=== PATIENT | male | born 1965 | race Hispanic/Latino ===

== ENCOUNTER 2018-04-11 16:36 | Emergency (ER) | payer OTHER ==
[2018-04-11] MEDS ORDERED: ASPIRIN 325 MG TABLET ONE (16:42)
[2018-04-11 17:00] LABS: BASOPHILS % (AUTO) 2.1 % (0.0-5.0); EOSINOPHILS % (AUTO) 2.6 % (0.0-8.0); HEMATOCRIT 38.9 % (42-54); MEAN CORPUSCULAR HEMOGLOBIN 28.1 pg (27.0-33.0); MEAN CORPUSCULAR HGB CONC 34.7 g/dL (32.0-36.0); MEAN CORPUSCULAR VOLUME 80.9 fL (79-99); NEUTROPHILS % (AUTO) 77.3 % (40.0-77.0); NUCLEATED RED BLOOD CELLS 0.1 % (0.0-0.19); PLATELET COUNT (AUTO) 249 K/uL (130-400); RED BLOOD CELL COUNT(AUTO) 4.82 MIL/uL (4.50-6.20); RED CELL DISTRIBUTION WIDTH 14.9 % (11.0-15.5); WHITE BLOOD COUNT (AUTO) 6.4 K/uL (4.8-10.8)
[2018-04-11 17:12] LABS: PARTIAL THROMBOPLASTIN TIME 25.2 SEC (26.3-35.5); PROTHROMBIN TIME 10.5 SEC (9.6-11.6)
[2018-04-11 17:15] LABS: CREATININE 0.8 mg/dL (0.5-1.5); POTASSIUM 4.1 mmol/L (3.5-5.1)
[2018-04-11 17:48] LABS: BILIRUBIN,TOTAL 0.4 mg/dL (0.2-1.0); CREATINE KINASE MB 1.6 ng/mL (0.5-3.6); TOTAL PROTEIN, SERUM 7.1 g/dL (6.0-8.3)
== END 2018-04-11 20:32 | disposition home or self-care (01) ==
LOC: EDH 16:36
DX: R07.9 Chest pain, unspecified (principal); R06.02 Shortness of breath; I10 Essential (primary) hypertension; Z87.891 Personal history of nicotine dependence; Z88.0 Allergy status to penicillin
CPT/HCPCS: 36415; 71045; 80053; 82550; 82553; 83874; 84484; 85025; 85610; 85730; 93005; 94761

== ENCOUNTER 2019-09-25 19:27 | Inpatient (IN) | payer SELFPAY ==
[~2019-09-25] VITALS: Ht 152.4 cm; Wt 149.7 kg
[2019-09-25] MEDS ORDERED: ACETAMINOPHEN EXTRA STRENGTH 500 MG TABLET ONE (19:58)
[2019-09-25] MEDS ORDERED: SODIUM CHLORIDE 0.9% 1000ML 1,000 ML IV ONE ×2 (19:58→22:43)
[2019-09-25 20:01] LABS: BASOPHILS % (AUTO) 0.3 % (0.0-5.0); EOSINOPHILS % (AUTO) 0.1 % (0.0-8.0); HEMATOCRIT 38.1 % (42-54); LYMPHOCYTES % (AUTO) 4.4 % (21.0-51.0); MEAN CORPUSCULAR HEMOGLOBIN 26.4 pg (27.0-33.0); MEAN CORPUSCULAR HGB CONC 32.5 g/dL (32.0-36.0); MEAN CORPUSCULAR VOLUME 81.1 fL (79-99); NEUTROPHILS % (AUTO) 87.6 % (40.0-77.0); PLATELET COUNT (AUTO) 226 K/uL (130-400); RED CELL DISTRIBUTION WIDTH 15.1 % (11.0-15.5); WHITE BLOOD COUNT (AUTO) 10.4 K/uL (4.8-10.8)
[2019-09-25 20:06] LABS: APPEARANCE,URINE Turbid (CLEAR); BILIRUBIN,URINE Small (NEGATIVE); COLOR,URINE Dark Yellow (YELLOW); GLUCOSE, URINE (UA) Negative (NEGATIVE); KETONES,URINE >=80 mg/dL (NEGATIVE); LEUKOCYTE ESTERASE ,URINE Moderate (NEGATIVE); NITRATE,URINE Negative (NEGATIVE); OCCULT BLOOD,URINE Negative (NEGATIVE); PH,URINE 7.5 (5.0-8.0); PROTEIN,URINE POS 2+ mg/dL (NEGATIVE)
[2019-09-25 20:15] LABS: BACTERIA,URINE Many /HPF (None Seen); MUCUS,URINE Few LPF (None Seen); SQUAMOUS EPITHELIAL CELL,UR 0-2 /HPF (0-2)
[2019-09-25 20:16] LABS: TRIPLE PHOSPHATE CRYSTAL,UR Few /LPF (None Seen)
[2019-09-25 20:17] LABS: CARBON DIOXIDE 27 mmol/L (21-32); CHLORIDE 101 mmol/L (101-111); GLOMERULAR FILTR. RATE CALC 82 mL/min (>60); GLUCOSE,RANDOM 112 mg/dL (70-105); POTASSIUM 4.1 mmol/L (3.5-5.1); SODIUM SERUM 137 mmol/L (136-145); UREA NITROGEN, BLOOD 12 mg/dL (7-18)
[2019-09-25 20:18] LABS: INR 1.11 (0.85-1.15); PARTIAL THROMBOPLASTIN TIME 30.3 SEC (26.3-35.5); PROTHROMBIN TIME 11.6 SEC (9.6-11.6)
[2019-09-25 20:28] LABS: ALANINE AMINOTRANSFERASE 31 U/L (12-78); ALBUMIN 3.1 g/dL (3.5-5.0); ASPARTATE AMINOTRANSFERASE 34 U/L (10-37); BILIRUBIN,TOTAL 0.6 mg/dL (0.2-1.0); CREATINE KINASE, TOTAL 119 U/L (21-232); MYOGLOBIN 93 ng/mL (10-92); TOTAL PROTEIN, SERUM 7.8 g/dL (6.0-8.3); TROPONIN I < 0.04 ng/mL (0.00-0.06)
[2019-09-25] MEDS ORDERED: LEVOFLOXACIN 500 MG/D5W 100 ML 100 ML ONE (21:12)
[2019-09-25] MEDS: SODIUM CHLORIDE 0.9% 1000ML 1,000 ML IV SCH (21:26)
[2019-09-25] MEDS ORDERED: MECLIZINE HCL 25 MG TABLET PO PRN (21:30)
[2019-09-25] MEDS ORDERED: LACTULOSE 20 GM/30 ML UDCUP PO PRN (21:30)
[2019-09-25] MEDS ORDERED: ONDANSETRON HCL 4 MG/2 ML VIAL IV PRN (21:30)
[2019-09-25] MEDS ORDERED: CEFTRIAXONE SODIUM 1 GM IV SCH (21:30)
[2019-09-25] MEDS ORDERED: ACETAMINOPHEN 325 MG TAB PO PRN ×2 (21:30)
[2019-09-25 21:44] LABS: HEMOGLOBIN A1C 5.8 % (4.0-6.0)
[2019-09-25 21:45] LABS: CHOLESTEROL 152 mg/dL (<200); HDL CHOLESTEROL 50 mg/dL (29-71); LDL DIRECT 82 mg/dL (0-99); TRIGLYCERIDES 100 mg/dL (30-200)
[2019-09-25] MEDS ORDERED: CEFTRIAXONE SODIUM 1 GM ONE (22:43)
[2019-09-26] VITALS (8 sets, daily range): BP systolic 108–145; BP diastolic 59–92
[2019-09-26 06:32] LABS: BASOPHILS % (AUTO) 0.3 % (0.0-5.0); EOSINOPHILS % (AUTO) 0.2 % (0.0-8.0); HEMATOCRIT 35.7 % (42-54); LYMPHOCYTES % (AUTO) 4.3 % (21.0-51.0); MEAN CORPUSCULAR HEMOGLOBIN 25.9 pg (27.0-33.0); MEAN CORPUSCULAR HGB CONC 31.9 g/dL (32.0-36.0); MONOCYTES % (AUTO) 6.9 % (3.0-13.0); NEUTROPHILS % (AUTO) 87.8 % (40.0-77.0); PLATELET COUNT (AUTO) 199 K/uL (130-400); RED BLOOD CELL COUNT(AUTO) 4.41 MIL/uL (4.50-6.20); RED CELL DISTRIBUTION WIDTH 15.2 % (11.0-15.5); WHITE BLOOD COUNT (AUTO) 6.1 K/uL (4.8-10.8)
[2019-09-26 06:45] LABS: CREATININE 0.8 mg/dL (0.5-1.5); POTASSIUM 3.6 mmol/L (3.5-5.1)
[2019-09-26] MEDS: SODIUM CHLORIDE 0.9% 1000ML 1,000 ML IV SCH (07:26)
[2019-09-26] MEDS: FAMOTIDINE 20MG TAB 20 MG TAB PO SCH ×2 (08:29→21:25)
--- NOTE | 2019-09-26 08:41 | NUR ---
when doing my morning assessment on patient i asked him if he's had any chest pain and he stated yes that he did at 7am, a sharp pain to his left chest which lasted about 2 minutes and went away when he rolled from his right side onto his left side in bed; i have called dr Dee and informed him of this and received order to do cardiac enzymes. order placed.
[2019-09-26 10:30] LABS: CREATINE KINASE, TOTAL 106 U/L (21-232); MYOGLOBIN 61 ng/mL (10-92); TROPONIN I < 0.04 ng/mL (0.00-0.06)
--- NOTE | 2019-09-26 11:01 | NUR ---
cardiac enzymes negative; pt having frequent diarrhia stools, samples collected and sent to lab.
[2019-09-26] MEDS ORDERED: METRONIDAZOLE 500MG/100ML BAG 100 ML ONE (12:31)
[2019-09-26] MEDS ORDERED: METRONIDAZOLE 500MG/100ML BAG 100 ML IV SCH (14:00)
--- NOTE | 2019-09-26 15:51 | NUR ---
DCP CM met with pt discussed dc plans. Pt is independent prior to admission, lives at home with daughter. Pt has a walker, wheelchair, cane, and bedside commode. Denies any other equipments/services. Feels safe to go back home, daughter able to assist with transportation and needs as necessary. DC plan to home once stable. CM to cont to follow up. Addendum: 09/26/19 at 1553 by IFRAH CARDENAS LVN CM Amended: Links added. Addendum: 09/26/19 at 1554 by IFRAH CARDENAS LVN CM ENTERED IN ERROR.
--- NOTE | 2019-09-26 16:10 | NUR ---
INITIAL ELISEO CHAPMAN, EMPLOYED, INDP, LIVES W DAUGHTER NO DME, DC PLAN HOME RESOURCE PKT PENDING CM TO FOLLOW UP Addendum: 09/26/19 at 1619 by YESY SHOOK RN CM Amended: Links added.
[2019-09-26] MEDS ORDERED: LEVOFLOXACIN 500 MG/D5W 100 ML 100 ML IV SCH (19:00)
[2019-09-26] MEDS: METRONIDAZOLE 500MG/100ML BAG 100 ML IV SCH (21:25)
[2019-09-27] MEDS: SODIUM CHLORIDE 0.9% 1000ML 1,000 ML IV SCH ×3 (00:04→13:26)
[2019-09-27] MEDS: CEFTRIAXONE SODIUM 2 GM VIAL IVP SCH ×2 (00:05→21:56)
[2019-09-27 03:30] VITALS: BP 134/96
[2019-09-27] MEDS: METRONIDAZOLE 500MG/100ML BAG 100 ML IV SCH ×3 (05:15→21:56)
[2019-09-27 08:12] VITALS: BP 127/66
[2019-09-27] MEDS: FAMOTIDINE 20MG TAB 20 MG TAB PO SCH ×2 (09:49→21:56)
[2019-09-27 11:56] VITALS: BP 119/32
[2019-09-27 16:00] VITALS: BP 120/51
[2019-09-27 19:00] VITALS: BP 125/84
[2019-09-28] VITALS: BP 135/72
[2019-09-28 04:00] VITALS: BP 101/52
[2019-09-28] MEDS: METRONIDAZOLE 500MG/100ML BAG 100 ML IV SCH (05:32)
[2019-09-28 05:33] LABS: HEMATOCRIT 34.6 % (42-54); MEAN CORPUSCULAR HEMOGLOBIN 26.3 pg (27.0-33.0); MEAN CORPUSCULAR HGB CONC 32.7 g/dL (32.0-36.0); MEAN CORPUSCULAR VOLUME 80.7 fL (79-99); PLATELET COUNT (AUTO) 200 K/uL (130-400); RED BLOOD CELL COUNT(AUTO) 4.29 MIL/uL (4.50-6.20); RED CELL DISTRIBUTION WIDTH 15.1 % (11.0-15.5)
[2019-09-28] MEDS: SODIUM CHLORIDE 0.9% 1000ML 1,000 ML IV SCH ×2 (05:33→13:58)
[2019-09-28 05:44] LABS: CREATININE 0.8 mg/dL (0.5-1.5); POTASSIUM 3.7 mmol/L (3.5-5.1)
[2019-09-28 07:42] VITALS: BP 126/80
[2019-09-28] MEDS: FAMOTIDINE 20MG TAB 20 MG TAB PO SCH ×2 (08:56→21:50)
[2019-09-28 09:14] LABS: EOSINOPHILS % (MANUAL) 6 % (1-6); LYMPHOCYTES % (MANUAL) 23 % (22-44); MAN.DIFF COMMENT-IMPRESSION MANUAL DIFFERENTIAL; MONOCYTES % (MANUAL) 8 % (2-9); PLATELET MORPHOLOGY COMMENT ADEQUATE; SEGMENTED NEUTROPHILS % 63 % (40-70)
[2019-09-28 11:00] VITALS: BP 134/78
--- NOTE | 2019-09-28 14:28 | NUR ---
RD NOTIFICATION 54 YO MALE WITH BMI OF 64.4; CLASSIFIED MORBID OBESE. PT STATED HE USED TO WEIGHT 400 POUNDS AND HAS LOST WEIGHT IN THE PAST SEVERAL MONTHS WITH THE HELP OF TAILORING HIS DIET. HE WORKS TWO JOBS AND LIVES WITH HIS DAUGHTER AND GRANDCHILDREN WHO HE LOVES DEARLY. PT IS MOTIVATED TO CONTINUE WITH HIS WEIGHT LOSS JOURNEY BECAUSE HE WANTS TO CONTINUE TO BE THERE FOR HIS FAMILY. RD PROVIDED MORE INFORMATION/ TIPS TO HELP WITH WEIGHT LOSS AND HEALTHFUL EATING PATTERNS. PT ASKED QUESTIONS, RD ANSWERED AND PT VERBALIZED UNDERSTANDING. EDUCATION MATERIALS WERE PROVIDED. RD ENCOURAGED PT TO REACH OUT OF HE HAS ADDITIONAL QUESTIONS REGARDING THIS. RD WILL CONTINUE TO FOLLOW UP NEEDED, THANK YOU. Addendum: 09/28/19 at [address] Amended: Links added.
--- NOTE | 2019-09-28 14:36 | NUR ---
OBESITY/MALNUTR[facility] MEDICAL NUTRITION THERAPY 54 YO MALE WITH BMI OF 64.4; CLASSIFIED MORBID OBESE. PT STATED HE USED TO WEIGHT 400 POUNDS AND HAS LOST WEIGHT IN THE PAST SEVERAL MONTHS WITH THE HELP OF TAILORING HIS DIET. HE WORKS TWO JOBS AND LIVES WITH HIS DAUGHTER AND GRANDCHILDREN WHO HE LOVES DEARLY. PT IS MOTIVATED TO CONTINUE WITH HIS WEIGHT LOSS JOURNEY BECAUSE HE WANTS TO CONTINUE TO BE THERE FOR HIS FAMILY. RD PROVIDED MORE INFORMATION/ TIPS TO HELP WITH WEIGHT LOSS AND HEALTHFUL EATING PATTERNS. PT ASKED QUESTIONS, RD ANSWERED AND PT VERBALIZED UNDERSTANDING. EDUCATION MATERIALS WERE PROVIDED. RD ENCOURAGED PT TO REACH OUT OF HE HAS ADDITIONAL QUESTIONS REGARDING THIS. Addendum: 09/28/19 at [address] Amended: Links added.
[2019-09-28 16:25] VITALS: BP 131/82
[2019-09-28 19:49] VITALS: BP 126/76
[2019-09-28] MEDS: CEFTRIAXONE SODIUM 2 GM VIAL IVP SCH (21:50)
[2019-09-29 00:25] VITALS: BP 118/74
[2019-09-29] MEDS: SODIUM CHLORIDE 0.9% 1000ML 1,000 ML IV SCH ×2 (01:40→05:26)
[2019-09-29 05:05] VITALS: BP 130/50
[2019-09-29 07:43] VITALS: BP 147/79
[2019-09-29] MEDS: FAMOTIDINE 20MG TAB 20 MG TAB PO SCH (08:34)
[2019-09-29] MEDS ORDERED: LEVO500T2 PO (10:53)
[2019-09-29 10:57] VITALS: BP 160/88
--- NOTE | 2019-09-29 12:45 | NUR ---
PT D/C HOME USING TEACH BACK TECHNIQUE RE; NEW MEDS, HOME MEDS, S/S TO WATCH FOR AND WHEN TO CALL 911 OR MD. FOLLOW UP WITH YOUR PRIMARY DOCTOR IN 2-4 DAYS FOR TRANSITION OF CARE. CALL TO SET UP AN APPOINTMENT OR MAY GO A WALK IN. MAKE SURE TO DRINK PLENTY OF FLUIDS TO PREVENT DEHYDRATION WHICH CAN BE A CAUSE OF DIZZINESS. EAT PLENTY OF FOODS CONTAINING POTASSIUM TO PREVENT LOW POTASSIUM LEVELS IN YOUR BLOOD. SUCH BANANAS. IF SHORTNESS OF BREATH, CHEST PAIN, DIZZINESS THAT DOES NOT RESOLVE WITH REST CALL 911. MAKE SURE TO COMPLETE FULL COURSE OF ANTIBIOTIC THERAPY TO PREVENT SUPER INFECTION IN THE URINE. IF FEVERS OF 101.0, TROUBLE URINATING OR URINARY FREQUENCY CALL YOUR DOCTOR COULD MEAN INFECTION IS BACK. IV CATHETER D/C INTACT NO BLEEDING, PT IS AAOX3, IN NO DISTRESS, NO SOB. AND DAUGHTER AT BEDSIDE AWARE OF DISCHARGE INDICATIONS.
== END 2019-09-29 13:26 | disposition home or self-care (01) | DRG 872 ==
LOC: EDH 19:27 → OBSVTOIN 19:28 → EDHIP 19:28 → 4BH 09-26 00:09 → 4AH 09-26 01:26 → 4BH 09-26 13:39
PROVIDERS: ADMIT Internal Medicine; ATTEND Internal Medicine
DX: A41.50 Gram-negative sepsis, unspecified (principal); N10 Acute pyelonephritis; E44.0 Moderate protein-calorie malnutrition; Z68.44 Body mass index [BMI] 60.0-69.9, adult; E66.01 Morbid (severe) obesity due to excess calories; E86.0 Dehydration; K52.9 Noninfective gastroenteritis and colitis, unspecified
CPT/HCPCS: 36415; 70450; 71045; 76770; 80048; 80053; 80061; 81001; 82550; 83036; 83605; 83630; 83874; 84145; 84484; 85025; 85610; 85730; 87040; 87077; 87088; 87177; 87186; 87507; 87804; 93005; 97039; G0378; J0696; J1956; J3490; J7030

== ENCOUNTER 2022-05-22 11:12 | Inpatient (IN) | payer OTHER ==
[~2022-05-22] VITALS: Ht 157.5 cm; Wt 149.7 kg
[~2022-05-22 11:12] MED LIST: LEVO500T2 PO
[2022-05-22 12:15] LABS: BASOPHILS % (AUTO) 0.2 % (0.0-5.0); EOSINOPHILS % (AUTO) 0.3 % (0.0-8.0); HEMATOCRIT 36.7 % (42-54); LYMPHOCYTES % (AUTO) 4.1 % (21.0-51.0); MEAN CORPUSCULAR HEMOGLOBIN 25.6 pg (27.0-33.0); MEAN CORPUSCULAR HGB CONC 32.7 g/dL (32.0-36.0); MEAN CORPUSCULAR VOLUME 78.4 fL (79-99); MONOCYTES % (AUTO) 6.8 % (3.0-13.0); PLATELET COUNT (AUTO) 287 K/uL (130-400); RED BLOOD CELL COUNT(AUTO) 4.68 MIL/uL (4.50-6.20); RED CELL DISTRIBUTION WIDTH 15.8 % (11.0-15.5); WHITE BLOOD COUNT (AUTO) 21.1 K/uL (4.8-10.8)
[2022-05-22 12:25] LABS: APPEARANCE,URINE CLOUDY (CLEAR); BILIRUBIN,URINE SMALL (NEGATIVE); COLOR,URINE YELLOW (YELLOW); GLUCOSE, URINE (UA) NEGATIVE (NEGATIVE); KETONES,URINE 15 mg/dL (NEGATIVE); LEUKOCYTE ESTERASE ,URINE LARGE (NEGATIVE); NITRATE,URINE POSITIVE (NEGATIVE); OCCULT BLOOD,URINE MODERATE (NEGATIVE); PH,URINE 6.5 (5.0-8.0); PROTEIN,URINE 30 mg/dL (NEGATIVE); UROBILINOGEN,URINE >=8.0 mg/dL (0.2-1.0)
[2022-05-22 12:28] LABS: BACTERIA,URINE Rare /HPF (None Seen); RBC,URINE 0-1 /HPF (0-1); SQUAMOUS EPITHELIAL CELL,UR Rare /HPF (0-2); WBC,URINE >100 /HPF (0-1)
[2022-05-22] MEDS ORDERED: ACETAMINOPHEN 500 MG TABLET PO ONE (12:30)
[2022-05-22] MEDS ORDERED: 0.9%NACL 1000ML 1,638 ML IV ONE (12:30)
[2022-05-22] MEDS ORDERED: CEFTRIAXONE 1G VIAL IVP ONE (12:30)
[2022-05-22] MEDS ORDERED: IBUPROFEN 800 MG TAB PO ONE (12:30)
[2022-05-22 12:33] LABS: INR 1.12 (0.85-1.15); PROTHROMBIN TIME 12.1 SEC (9.6-11.6)
[2022-05-22 12:34] LABS: PARTIAL THROMBOPLASTIN TIME 28.6 SEC (26.3-35.5)
[2022-05-22 12:40] LABS: CREATININE 0.8 mg/dL (0.5-1.5)
[2022-05-22 12:45] LABS: TOTAL PROTEIN, SERUM 7.2 g/dL (6.0-8.3)
[2022-05-22] MEDS ORDERED: MAG/ALUM/SIMETH 30 ML UDCUP PO PRN (14:00)
[2022-05-22] MEDS ORDERED: LACTULOSE 20 GM/30 ML UDCUP PO PRN (14:00)
[2022-05-22] MEDS ORDERED: DiphenhydrAMINE HCL 50 MG/ML VIAL IV PRN (14:00)
[2022-05-22] MEDS ORDERED: NITROGLYCERIN 0.4 MG SL TAB SL PRN (14:00)
[2022-05-22] MEDS ORDERED: ACETAMINOPHEN 325 MG TAB PO PRN ×2 (14:00)
[2022-05-22] MEDS ORDERED: CEFTRIAXONE 1G VIAL IV SCH (14:00)
[2022-05-22] MEDS ORDERED: GUAIFENESIN-DM 200/20 MG 10 ML PO PRN (14:00)
[2022-05-22] MEDS ORDERED: ONDANSETRON 4MG INJ IV PRN (14:00)
[2022-05-22 17:24] VITALS: BP 109/56
[2022-05-22] MEDS ORDERED: [UNRECOGNIZED DRUG - OTHER] PO (19:04)
[2022-05-22] MEDS ORDERED: ANTI DIARRHEAL (19:04)
[2022-05-22] MEDS ORDERED: IBUP-2077 PO (19:04)
[2022-05-22 19:15] VITALS: BP 122/72
[2022-05-22] MEDS: FAMOTIDINE 20MG VIAL IV SCH (21:02)
[2022-05-23] VITALS: BP 132/79
[2022-05-23 04:00] VITALS: BP 136/81
[2022-05-23 06:45] LABS: HEMATOCRIT 32.4 % (42-54); MEAN CORPUSCULAR HEMOGLOBIN 25.7 pg (27.0-33.0); MEAN CORPUSCULAR HGB CONC 32.7 g/dL (32.0-36.0); MEAN CORPUSCULAR VOLUME 78.6 fL (79-99); PLATELET COUNT (AUTO) 247 K/uL (130-400); RED BLOOD CELL COUNT(AUTO) 4.12 MIL/uL (4.50-6.20); RED CELL DISTRIBUTION WIDTH 15.9 % (11.0-15.5); WHITE BLOOD COUNT (AUTO) 11.4 K/uL (4.8-10.8)
[2022-05-23 07:01] LABS: CREATININE 0.8 mg/dL (0.5-1.5); POTASSIUM 3.6 mmol/L (3.5-5.1)
[2022-05-23 08:00] VITALS: BP 144/84
[2022-05-23] MEDS: FAMOTIDINE 20MG VIAL IV SCH ×2 (09:34→20:48)
[2022-05-23] MEDS: ENOXAPARIN SODIUM 40 MG/0.4 ML SYRINGE SQ SCH (09:35)
[2022-05-23 09:38] LABS: BAND NEUTROPHILS % (MANUAL) 2 % (0-2); EOSINOPHILS % (MANUAL) 2 % (1-6); LYMPHOCYTES % (MANUAL) 3 % (22-44); MONOCYTES % (MANUAL) 8 % (2-9); SEGMENTED NEUTROPHILS % 85 % (40-70)
[2022-05-23 09:39] LABS: MAN.DIFF COMMENT-IMPRESSION MANUAL DIFFERENTIAL
[2022-05-23] MEDS: CEFTRIAXONE 1G VIAL IV SCH (12:20)
[2022-05-23 13:43] VITALS: BP 121/70
[2022-05-23 16:04] VITALS: BP 141/85
[2022-05-23 20:00] VITALS: BP 149/81
[2022-05-24] VITALS: BP 144/79
[2022-05-24 04:00] VITALS: BP 132/83
[2022-05-24 08:00] VITALS: BP 120/72
[2022-05-24] MEDS: FAMOTIDINE 20MG VIAL IV SCH (08:07)
[2022-05-24] MEDS: ENOXAPARIN SODIUM 40 MG/0.4 ML SYRINGE SQ SCH (08:08)
[2022-05-24 12:00] VITALS: BP 127/82
[2022-05-24] MEDS: CEFTRIAXONE 1G VIAL IV SCH (12:12)
[2022-05-24] MEDS ORDERED: SULF1TAB41 PO (14:58)
== END 2022-05-24 16:10 | disposition home or self-care (01) | DRG 690 ==
LOC: EDH 11:12 → EDHIP 11:13 → 3CH 15:51
PROVIDERS: ADMIT Internal Medicine; ATTEND Internal Medicine
DX: N12 Tubulo-interstitial nephritis, not specified as acute or chronic (principal); Z68.44 Body mass index [BMI] 60.0-69.9, adult; E86.0 Dehydration; E66.01 Morbid (severe) obesity due to excess calories; M19.90 Unspecified osteoarthritis, unspecified site; Z87.440 Personal history of urinary (tract) infections
CPT/HCPCS: 36415; 36600; 71045; 76770; 80048; 80053; 81001; 82550; 83605; 84484; 85025; 85610; 85730; 86140; 87040; 87077; 87088; 87186; 93005; G0378; J0696; J1650; J3490; J7030

== ENCOUNTER → 2023-03-04 | Outpatient (CLI) | payer OTHER ==
[~2023-03-04] MED LIST changes: -LEVO500T2 PO; +SULF1TAB41 PO
== END | disposition home or self-care (01) ==
LOC: RAH 07:40
PROVIDERS: ATTEND Internal Medicine
DX: K76.0 Fatty (change of) liver, not elsewhere classified (principal); R16.0 Hepatomegaly, not elsewhere classified; K80.20 Calculus of gallbladder without cholecystitis without obstruction; R10.13 Epigastric pain
CPT/HCPCS: 76700

== ENCOUNTER → 2023-04-17 | Outpatient (CLI) | payer OTHER | END | disposition home or self-care (01) | LOC: SHCH 12:52 | PROVIDERS: ATTEND Student in an Organized Health Care Education/Training Program | DX: R94.31 Abnormal electrocardiogram [ECG] [EKG] (principal); I51.7 Cardiomegaly; R07.89 Other chest pain; E78.5 Hyperlipidemia, unspecified | CPT/HCPCS: 93306 ==